=== PATIENT | male | born 1950 | race Caucasian/White ===

== ENCOUNTER → 2017-06-30 12:40 | Outpatient (CLI) | payer MEDICARE, BC, SELFPAY ==
--- NOTE | 2017-06-30 12:46 | XR_ITS ---
XR knee LT 4V HISTORY: ITS.REASON: knee pain ORDERING PHYSICIAN: Damien Arteaga MD PATIENT AGE: 67 years FINDINGS: Severe osteoarthritic changes are present involving the medial compartment with moderate osteoarthritic change of the patellofemoral joint and lateral compartment. There is some mild cortical irregularity of the medial femoral condyle and medial tibial plateau. No fracture or dislocation. No lytic or blastic change. IMPRESSION: Severe osteoarthritis of the left knee. This is slightly worse than when compared to 06/27/2014
== END ==
PROVIDERS: PCP Family Medicine; Visit Provider Orthopaedic Surgery
DX: M25.562 Pain in left knee (principal)
CPT/HCPCS: 73564

== ENCOUNTER 2017-07-06 10:17 | Outpatient (RCR) | payer MEDICARE, BC, SELFPAY | END 2017-07-06 10:18 | disposition home or self-care (01) | LOC: PT 10:17 | PROVIDERS: PCP Family Medicine; Visit Provider Orthopaedic Surgery | DX: M17.12 Unilateral primary osteoarthritis, left knee (principal) ==

== ENCOUNTER → 2019-03-28 09:44 | Outpatient (CLI) | payer MEDICARE, OTHER, SELFPAY | PROVIDERS: PCP Family Medicine; Visit Provider Family Medicine | DX: R06.02 Shortness of breath (principal) | CPT/HCPCS: 94060; 94640 ==

== ENCOUNTER → 2019-08-26 12:11 | Outpatient (CLI) | payer MEDICARE, OTHER, SELFPAY | PROVIDERS: PCP Family Medicine; Visit Provider Nurse Practitioner Family | DX: G47.33 Obstructive sleep apnea (adult) (pediatric) (principal); G31.84 Mild cognitive impairment of uncertain or unknown etiology; G47.00 Insomnia, unspecified; I10 Essential (primary) hypertension; Z68.39 Body mass index [BMI] 39.0-39.9, adult | CPT/HCPCS: G0399 ==

== ENCOUNTER → 2019-10-03 15:23 | Outpatient (CLI) | payer MEDICARE, OTHER, SELFPAY | PROVIDERS: PCP Family Medicine; Visit Provider Nurse Practitioner Family | DX: I49.9 Cardiac arrhythmia, unspecified (principal); R06.00 Dyspnea, unspecified; R60.0 Localized edema; R94.31 Abnormal electrocardiogram [ECG] [EKG] | CPT/HCPCS: 93270 ==

== ENCOUNTER → 2019-10-10 07:21 | Outpatient (CLI) | payer MEDICARE, OTHER, SELFPAY ==
--- NOTE | 2019-10-10 07:22 | CA_ITS ---
APPROVED REPORT Exam: Pharmacologic Technologist: helen gong, Ht: 5 ft 11 in Wt: 260 lbs BSA: 2.36 m2 HR: 66 bpm BP: 184/88 mmHg Indications: SOB Medical History Medications: Levothyroxine,,,,, Hydralazine,,,,, Metoprolol,,,,, Asa,,,,, Pravastatin,,,,, Vitamin B12,,,,, Allopurinol,,,,, Montelukast,,,,, ZYRTEC,,,,, NifEDEFINE,,,,, CyclobenAPRINE,,,,, Allergies: NKA Cardiac Risk Factors: HTN, Hyperlipidemia, Diabetes (non-insulin), Smoking Stress Test Details Test: LEXISCAN HR Resting HR: 65 bpm Max Heart Rate (APMHR): 150 bpm Max HR Achieved: 112 bpm Target HR (85% APMHR): 127 bpm % of APMHR: 74 Recovery HR: 70 bpm BP Resting BP: 184/88 mmHg Max BP: 197/79 mmHg Recovery BP: 127.0/62.0 mmHg ECG Resting ECG: Sinus Rhythm Clinical Exercise duration: 04:01 min Highest Stage Achieved: Stress ECG Conclusion Lexiscan portion completed. Pt. c/o SOB which resolved during recovery. No chest pain. Occ PVC. Less than 1.5mm ST Depression. Images to follow Test Summary REST 02:54 . . 65 . 184/ 88 . . Stage 1 . . . . . . . Myoview Injected Stage 1 01:00 . . 110 . . . . Stage 2 01:00 . . 96 . . . . Stage 3 01:00 . . 85 . 197/ 79 . . Stage 4 01:00 . . 76 . 141/ 64 . . Stage 4 01:01 . . 76 . 141/ 64 . Stop exercise at 04:01 RECOVERY 01:00 . . 71 . 127/ 62 . . RECOVERY 02:00 . . 70 . 127/ 62 . . RECOVERY 03:00 . . 68 . 139/ 65 . . RECOVERY 03:48 . . 67 . 146/ 70 . . Electronically signed by : Max Freire, 10/10/2019 19:39:19
--- NOTE | 2019-10-10 07:22 | NM_ITS ---
APPROVED REPORT Exam: Nuclear Stress Test Indication: Abnormal EKG, SOB, HTN, DM, High cholesterol, Former tobacco use Patient Location: Outpatient Stress Tech: Chana Mike [place] Tech:Radha Dickerson, JERRYT, RT (R)(N) Ht: 5 ft 11 in Wt: 260 lbs HR: 66 bpm BP: 184/88 mmHg BSA: 2.36 m2 BMI: 36.2 History: Abnormal EKG, SOB, HTN, DM, High cholesterol, Former tobacco use Procedure: Patient received a 0.4 mg of intravenous Lexiscan, resting heart rate 66 bpm, resting blood pressure 184/88 mmHg, with Lexiscan maximum heart rate achived was 97 bpm which is Less than 85 % of the maximum predicted heart rate and blood pressure was 197/79 mmHg. With Lexiscan, patient denied any complaint of chest pain. Electrocardiogram Resting electrocardiogram shows sinus rhythm, with Lexiscan there is less than 1.[address] segment depression noted from the baseline EKG. The EKG portion of the Lexiscan Myoview is nondiagnostic. Cardiac Stress and Resting SPECT Images: Cardiac Stress and Resting SPECT images were obtained using technetium 99m Myoview 32.2 mCi stress and 10.57 mCi at rest. Gated SPECT for the analysis of segmental wall motion and calculation of the ejection fraction also done. Cardiac stress and resting SPECT images show uniform myocardial activity without segmental perfusion abnormality, computer derived ejection fraction is 56% with no regional wall motion abnormality, right ventricle is normal size and contractility. Conclusion: 1. The EKG portion of the Lexiscan Myoview is nondiagnostic. 2. No scintigraphic evidence of reversible ischemia seen, computer derived ejection fraction 56% with no regional wall motion abnormality, right ventricle is normal size and contractility. 3. Normal Lexiscan Myoview study. Electronically signed by : Max Freire, 10/10/2019 19:41:18
--- NOTE | 2019-10-10 07:44 | HMH.ITSHM ---
Current Home Medications as stated by this patient Georges Rollins or traveling representative. []LEVOTHYROXINE CYCLOBENZAPRINE BUDESONIDE ASA ALLOPURINOL PRAVASTATIN MULTIVITAMIN MONTELUKAST METOPROLOL HYDRALAZINE VIT B12 CETIRIZINE
== END ==
PROVIDERS: PCP Family Medicine; Visit Provider Nurse Practitioner Family
DX: I49.9 Cardiac arrhythmia, unspecified (principal); R06.00 Dyspnea, unspecified; R60.0 Localized edema; R94.31 Abnormal electrocardiogram [ECG] [EKG]
CPT/HCPCS: 78452; 93017; 93306; A9502; J2785

== ENCOUNTER → 2019-10-17 15:07 | Outpatient (CLI) | payer MEDICARE, OTHER, SELFPAY ==
--- NOTE | 2019-10-17 15:12 | CA_ITS ---
APPROVED REPORT EXAM: Comprehensive 2D, Doppler, and color-flow Echocardiogram Zipper Trimmer Hand: Mely Guadarrama RT(R) Ht: 5 ft 10 in Wt: 268lbs BSA: 2.36 BP: 170/89 mmHg Indications: COPD, ex smoker, edema, HTN, DM, hyperlipidemia, arrhythmia 2D Dimensions LVOT 2.12 cm (M/F) 1.5-2.5 M-Mode Dimensions RVDd 2.50 cm (0.9-2.6) LVDd 3.29 cm (3.5-5.7) LVDs 4.17 cm (3.5-5.7) IVSd 0.59 cm (0.6-1.1) PWd 3.40 cm (0.6-1.1) EF (Teich) 76.50% FS 26.70% EDV (Teich) 43.80 mL ESV (Teich) 77.30 mL LV Diastology E/A Ratio 0.60 Mitral Valve MV A Velocity 86.00 (40-130 cm/s) Left Ventricle Left atrium is mildly enlarged, left ventricle is normal size, mild concentric left ventricular hypertrophy, visually estimated ejection fraction 55% with no regional wall motion abnormality, grade 1 diastolic dysfunction seen without tissue Doppler evidence of raise left atrial pressure. Right Ventricle Right atrium and right ventricular mildly enlarged with normal contractility. Aortic Valve Aortic valve is minimally thickened and fibrosed, there is no aortic stenosis or aortic insufficiency. Mitral Valve Mitral valve leaflets are minimally thickened, there is no mitral stenosis, there is moderate mitral regurgitation. Tricuspid Valve Tricuspid valve is grossly normal, there is mild tricuspid regurgitation, tricuspid regurgitation jet velocity is inadequate for calculation of the right ventricular systolic pressure. Pulmonic Valve Pulmonic valve is poorly visualized. Great Vessels Aortic root is normal size. Pericardium No significant pericardial effusion noted. Conclusion 1. Biatrial enlargement, normal left ventricular size, mild concentric left ventricular hypertrophy, visually estimated ejection fraction 55% with no regional wall motion abnormality, grade 1 diastolic dysfunction seen without tissue Doppler evidence of raise left atrial pressure. 2. Mildly enlarged right ventricle with normal contractility. 3. Mild mitral and tricuspid regurgitation. 4. No significant pericardial effusion noted. Electronically signed by : Max Freire, 10/17/2019 18:32:33
== END ==
PROVIDERS: PCP Family Medicine; Visit Provider Physician Assistant
DX: E11.69 Type 2 diabetes mellitus with other specified complication (principal); E78.2 Mixed hyperlipidemia; I10 Essential (primary) hypertension; I49.9 Cardiac arrhythmia, unspecified; R60.0 Localized edema; R94.31 Abnormal electrocardiogram [ECG] [EKG]
CPT/HCPCS: 93306